=== PATIENT | male | born 1980 | race American Indian/Alaskan Native ===

== ENCOUNTER 2021-09-28 09:14 | Emergency (ER) | payer OTHER ==
--- NOTE | 2021-09-28 11:07 | Emergency Department Report ---
ED Upper Extremity Inj HPI - General Chief Complaint: Extremity Injury, Upper Stated Complaint: LEFT HAND INJURY Time Seen by Provider: 09/28/21 10:51 Source: patient Mode of arrival: Ambulatory Limitations: No Limitations - History of Present Illness Initial Comments: Patient is a 41-year-old male who presents emergency room with complaints of a left hand injury that occurred on 09/20/2021. He states he was working and reports that a steel abdoul punctured through his left hand. He states he was able to remove it himself. He reports that he went to [facility] and had a x-ray were performed which she states was normal. He states over the last 3 days he is been having pain with making a fist. He states he also has a tingling sensation in his left ring finger. He states his pain is increased by lifting and moving. He denies any complete numbness. He denies any swelling, redness, drainage. Patient denies any medication allergies. He states his tetanus immunization was updated by the urgent care. - Related Data Allergies Allergy/AdvReac Type Severity Reaction Status Date / Time No Known Allergies Allergy Unverified 09/28/21 12:46 ED Review of Systems ROS: Stated complaint: LEFT HAND INJURY Other details as noted in HPI Comment: All other systems reviewed and negative ED Past Medical Hx - Social History Smoking Status: Current Every Day Smoker ED Physical Exam - General Limitations: No Limitations General appearance: alert, in no apparent distress - Head Head exam: Present: atraumatic, normocephalic - Eye Eye exam: Present: normal appearance - ENT ENT exam: Present: mucous membranes moist - Extremities Exam Extremities exam: Present: other (small healed puncture wound present to the left palm, no edema, no induration, no fluctuance, no drainage, no necrosis, FROM of the left wrist, hand, and digits, pain with making a full fist, he reports slight decreased sensation to the left ring finger but is still able to feel, 2+ distal pulses) - Neurological Exam Neurological exam: Present: alert, oriented X3 - Psychiatric Psychiatric exam: Present: normal affect, normal mood - Skin Skin exam: Present: warm, dry, intact ED Course Vital Signs 09/28/21 09/28/21 09:57 12:47 Temperature 98.1 F 97.9 F Pulse Rate 77 76 Respiratory 16 14 Rate Blood Pressure 108/64 Blood Pressure 123/74 [Right] O2 Sat by Pulse 98 99 Oximetry ED Medical Decision Making - Medical Decision Making Patient is a 41-year-old male who presents emergency room with complaints of a left hand injury that occurred on 09/20/2021. He states he was working and reports that a steel abdoul punctured through his left hand. He states he was able to remove it himself. He reports that he went to [facility] and had a x-ray were performed which she states was normal. He states over the last 3 days he is been having pain with making a fist. He states he also has a tingling sensation in his left ring finger. He states his pain is increased by lifting and moving. He denies any complete numbness. He denies any swelling, redness, drainage. Patient denies any medication allergies. He states his tetanus immunization was updated by the urgent care. Vitals are normal. On exam:small healed puncture wound present to the left palm, no edema, no induration, no fluctuance, no drainage, no necrosis, FROM of the left wrist, hand, and digits, pain with making a full fist, he reports slight decreased sensation to the left ring finger but is still able to feel, 2+ distal pulses. No signs of infection, cellulitis, or tenosynovitis. Could be related to the superficial nerves, he still has full range of motion, he has had recent x-ray. Patient will be referred to health program specialist for further evaluation. Advised patient Please follow-up with orthopedic doctor. Return to emergency room for any new or worsening symptoms. Critical care attestation.: If time is entered above; I have spent that time in minutes in the direct care of this critically ill patient, excluding procedure time. ED Disposition Clinical Impression: Paresthesia Hand pain Qualifiers: Laterality: left Qualified Code(s): M79.642 - Pain in left hand Disposition: 01 HOME / SELF CARE / HOMELESS Is pt being admited?: No Does the pt Need Aspirin: No Condition: Stable Additional Instructions: Please follow-up with orthopedic doctor. Return to emergency room for any new or worsening symptoms. Referrals: [facility] [Provider Group] - 3-5 Days MANASA PLATA MD [Referring] - 3-5 Days Time of Disposition: 11:06 Print Language: SERBIAN
[2021-09-28 12:53] VITALS: BP 123/74
== END 2021-09-28 12:53 | disposition home or self-care (01) ==
LOC: ED 09:14
DX: R20.2 Paresthesia of skin (principal); M79.642 Pain in left hand; F17.200 Nicotine dependence, unspecified, uncomplicated
CPT/HCPCS: 99281